=== PATIENT | female | born 1940 | race Caucasian/White ===

== ENCOUNTER 2020-03-13 21:40 | Emergency (ER) | payer MEDICARE, BC ==
--- NOTE | 2020-03-13 21:42 | CT ---
PROCEDURE INFORMATION: Exam: CT Head Without Contrast Exam date and time: 03/13/2020 9:33 PM Age: 79 years old Clinical indication: Weakness, facial; Additional info: Seizure, facial droop TECHNIQUE: Imaging protocol: Computed tomography of the head without contrast. Coronal and sagittal reformatted images are submitted. Radiation optimization: All CT scans at this facility use at least one of these dose optimization techniques: automated exposure control; mA and/or kV adjustment per patient size (includes targeted exams where dose is matched to clinical indication); or iterative reconstruction. Other technique: STROKE PROTOCOL was implemented. COMPARISON: No prior study is available for comparison at the time of this interpretation. FINDINGS: There are patchy mild hypodensities within the periventricular and frontal subcortical white matter bilaterally, consistent with chronic senescent small-vessel ischemic changes. No other abnormal foci of altered attenuation are seen within the remaining cerebral or cerebellar parenchyma. No intracranial mass lesion or evidence for acute territorial ischemia. There is symmetric enlargement of the ventricles and sulci bilaterally, consistent with cerebral atrophy, mild for age. No midline shift or hydrocephalus. No abnormal extraaxial fluid or air collection; no intracranial hemorrhage. Atherosclerotic intracranial vascular calcifications noted. There is evidence for prior bilateral ocular lens replacement surgery, but the orbits are otherwise unremarkable. The paranasal sinuses, mastoid air cells, skull, and scalp are unremarkable. IMPRESSION: --No acute intracranial pathology. --[place] Stroke Program Early CT Score (ASPECTS) = 10. --Chronic findings are described above.
[2020-03-13 22:11] LABS: ANION GAP 12.2 mEq/L (7-13); CHLORIDE,CL 99 mmol/L (98-107); SODIUM,NA 138 mmol/L (136-145)
[2020-03-13] MEDS ORDERED: Potassium Chloride 20 MEQ in Premix Bag 1 BAG IV ONE (22:54)
[2020-03-13] MEDS ORDERED: Sodium Chloride 0.9% 1,000 ML IV ONE (22:54)
--- NOTE | 2020-03-15 23:39 | EDM.PDOC ---
ED HPI GENERAL MEDICAL PROBLEM - General Chief Complaint: Neuro Symptoms/Deficits Stated Complaint: STROKE CODE - AMBULANCE Time Seen by Provider: 03/13/20 21:40 Source of Information: Reports: Patient, EMS, Family History Limitations: Reports: No Limitations - History of Present Illness INITIAL COMMENTS - FREE TEXT/NARRATIVE: ED via [facility] with report of seizure while at Family [facility]. Daughter reports grand mal type, first let out scream then generalized shaking for approximately 1 minute, incontinent urine. Lowered to ground, did not fall or hit head Postictal 15minutes at least. Hx Parkinson's disease. Resident [facility]. Had been with daughter in [place] for about one week prior to today's event. baseline some dementia with Parkinsons. Patient alert on arrival talking. EMS reported initial noting of right sided facial droop. No prior stroke events. No recent infection, no known exposure to COVID. GCS 14 - Related Data Allergies Allergy/AdvReac Type Severity Reaction Status Date / Time codeine Allergy Headache Verified 03/13/20 22:10 Home Meds: Home Meds Carbidopa/Levodopa [Carbidopa-Levodopa 25-250] 1 each PO ASDIRECTED 03/13/20 [History] Cholecalciferol (Vitamin D3) [Vitamin D] 5,000 unit PO DAILY 03/13/20 [History] Entacapone [Comtan] 200 mg PO ASDIRECTED 03/13/20 [History] Famotidine 20 mg PO DAILY 03/13/20 [History] Pantoprazole Sodium [Protonix] 40 mg PO DAILY 03/13/20 [History] Sertraline HCl 100 mg PO BID 03/13/20 [History] Vit A/Vit C/Vit E/Zinc/Copper [Preservision Areds Softgel] 1 each PO BID 03/13/20 [History] Zinc 50 mg PO DAILY 03/13/20 [History] Past Medical History Neurological History: Reports: Parkinson's Oncologic (Cancer) History: Reports: Leukemia - Past Surgical History GI Surgical History: Reports: Appendectomy, Bariatric Procedure, Cholecystectomy Female Surgical History: Reports: Hysterectomy Musculoskeletal Surgical History: Reports: Other (See Below) Other Musculoskeletal Surgeries/Procedures:: ankle surgery Social & Family History - Tobacco Use Smoking Status *Q: Never Smoker Second Hand Smoke Exposure: No - Recreational Drug Use Recreational Drug Use: No ED ROS GENERAL - Review of Systems Review Of Systems: See Below Constitutional: Reports: Weakness (general parkinnson's) HEENT: Reports: Glasses Respiratory: Reports: No Symptoms Cardiovascular: Reports: No Symptoms Endocrine: Reports: No Symptoms GI/Abdominal: Reports: No Symptoms : Reports: Incontinence Musculoskeletal: Reports: No Symptoms Skin: Reports: No Symptoms Neurological: Reports: Pre-Existing Deficit, Seizure. Denies: Dizziness, Headache, Numbness, Trouble Speaking Psychiatric: Reports: Other (early mild dementia) ED EXAM, NEURO - Physical Exam Exam: See Below Exam Limited By: No Limitations General Appearance: Alert, No Apparent Distress Eye Exam: Bilateral Eye: EOMI (3 brisk), PERRL Ears: Normal External Exam, Hearing Loss Nose: Normal Inspection Throat/Mouth: Normal Inspection Head Exam: Atraumatic, Normocephalic Neck: Normal Inspection Respiratory/Chest: No Respiratory Distress, Lungs Clear, Normal Breath Sounds Cardiovascular: Normal Peripheral Pulses, Regular Rate, Rhythm GI/Abdominal: Normal Bowel Sounds, Soft Neurological: Alert, Normal Reflexes, Other (generalized weakness equal strength bilateral). No: Oriented x 3 (oriented person, baseline deficit per daughter, Initial report lives in [place], corrects self, and that now is in [place].), Tremor Extremities: Limited Range of Motion (Stiff) Psychiatric: Flat Affect Skin Exam: Warm, Dry, Intact, Normal Color. No: Increased Warmth, Rash, Wound/Incision Course - Vital Signs Last Recorded V/S: Last Vital Signs Temp 98.1 F 03/13/20 21:41 Pulse 78 03/13/20 21:41 Resp 18 03/13/20 21:41 BP 168/77 H 03/13/20 21:41 Pulse Ox 94 L 03/13/20 21:41 - Orders/Labs/Meds Labs: Laboratory Tests 03/13/20 03/13/20 03/13/20 Range/Units 21:40 21:40 21:40 WBC 2.6 L (5.0-10.0) 10^3/uL RBC 4.48 (4.2-5.4) 10^6/uL Hgb 12.7 (12.0-16.0) g/dL Hct 39.2 (37.0-47.0) % MCV 87.5 (80-100) fL MCH 28.3 (27.0-34.0) pg MCHC 32.4 L (33.0-35.0) g/dL Plt Count 281 (150-450) 10^3/uL Neut % (Auto) 53.9 (42.2-75.2) % Lymph % (Auto) 22.3 (20.5-50.1) % Traverse % (Auto) 19.2 H (2-8) % Eos % (Auto) 4.2 H (1.0-3.0) % Baso % (Auto) 0.4 (0.0-1.0) % PT 9.6 (9.0-12.0) SEC INR 1.0 (0.9-1.2) Sodium 138 (136-145) mmol/L Potassium 3.2 L (3.5-5.1) mmol/L Chloride 99 (98-107) mmol/L Carbon Dioxide 30 (21-32) mmol/L Anion Gap 12.2 (7-13) mEq/L BUN 14 (7-18) mg/dL Creatinine 0.69 (0.55-1.02) mg/dL Est Cr Clr Drug Dosing TNP Estimated GFR (MDRD) > 60 BUN/Creatinine Ratio 20.3 (No establ ref range) Glucose 155 H (74-99) mg/dL Lactic Acid (0.4-2.0) mmol/L Calcium 8.5 (8.5-10.1) mg/dL Total Bilirubin 0.7 (0.2-1.0) mg/dL AST 16 (15-37) U/L ALT 9 L (14-59) U/L Alkaline Phosphatase 144 H (46-116) U/L Troponin I < 0.017 (0.000-0.056) ng/mL C-Reactive Protein 1.8 H (0.0-0.9) mg/dL Total Protein 6.9 (6.4-8.2) g/dL Albumin 3.6 (3.4-5.0) g/dL Globulin 3.3 Albumin/Globulin Ratio 1.1 Urine Color (YELLOW) Urine Appearance (CLEAR) Urine pH (5.0-9.0) Ur Specific Many (1.005-1.030) Urine Protein (NEGATIVE) Urine Glucose (UA) (NEGATIVE) Urine Ketones (NEGATIVE) Urine Occult Blood (NEGATIVE) Urine Nitrite (NEGATIVE) Urine Bilirubin (NEGATIVE) Urine Urobilinogen (0.2-1.0) mg/dL Ur Leukocyte Esterase (NEGATIVE) Urine RBC /HPF Urine WBC (0-5/HPF) /HPF Ur Epithelial Cells (NOT SEEN) /HPF Urine Bacteria (0-FEW/HPF) /HPF COVID-19 (APRYL) (NEGATIVE) 03/13/20 03/13/20 03/13/20 Range/Units 21:40 22:16 22:50 WBC (5.0-10.0) 10^3/uL RBC (4.2-5.4) 10^6/uL Hgb (12.0-16.0) g/dL Hct (37.0-47.0) % MCV (80-100) fL MCH (27.0-34.0) pg MCHC (33.0-35.0) g/dL Plt Count (150-450) 10^3/uL Neut % (Auto) (42.2-75.2) % Lymph % (Auto) (20.5-50.1) % Traverse % (Auto) (2-8) % Eos % (Auto) (1.0-3.0) % Baso % (Auto) (0.0-1.0) % PT (9.0-12.0) SEC INR (0.9-1.2) Sodium (136-145) mmol/L Potassium (3.5-5.1) mmol/L Chloride (98-107) mmol/L Carbon Dioxide (21-32) mmol/L Anion Gap (7-13) mEq/L BUN (7-18) mg/dL Creatinine (0.55-1.02) mg/dL Est Cr Clr Drug Dosing Estimated GFR (MDRD) BUN/Creatinine Ratio (No establ ref range) Glucose (74-99) mg/dL Lactic Acid 3.2 H* (0.4-2.0) mmol/L Calcium (8.5-10.1) mg/dL Total Bilirubin (0.2-1.0) mg/dL AST (15-37) U/L ALT (14-59) U/L Alkaline Phosphatase (46-116) U/L Troponin I (0.000-0.056) ng/mL C-Reactive Protein (0.0-0.9) mg/dL Total Protein (6.4-8.2) g/dL Albumin (3.4-5.0) g/dL Globulin Albumin/Globulin Ratio Urine Color Dark yellow (YELLOW) Urine Appearance Clear (CLEAR) Urine pH 7.0 (5.0-9.0) Ur Specific Many 1.020 (1.005-1.030) Urine Protein Negative (NEGATIVE) Urine Glucose (UA) Negative (NEGATIVE) Urine Ketones Negative (NEGATIVE) Urine Occult Blood Trace-intact H (NEGATIVE) Urine Nitrite Negative (NEGATIVE) Urine Bilirubin Negative (NEGATIVE) Urine Urobilinogen 0.2 (0.2-1.0) mg/dL Ur Leukocyte Esterase Negative (NEGATIVE) Urine RBC 0-5 /HPF Urine WBC 0-5 (0-5/HPF) /HPF Ur Epithelial Cells Rare (NOT SEEN) /HPF Urine Bacteria Rare (0-FEW/HPF) /HPF COVID-19 (APRYL) Negative (NEGATIVE) Meds: Medications Discontinued Medications Generic Name Dose Route Start Last Admin Trade Name Freq PRN Reason Stop Dose Admin Sodium Chloride 1,000 mls @ 500 mls/hr 03/13/20 22:54 03/13/20 23:11 Normal Saline IV 03/14/20 00:53 500 mls/hr .BOLUS ONE Administration Potassium Chloride 20 meq/ 100 mls @ 50 mls/hr 03/13/20 22:54 03/13/20 23:12 Premix IV 03/14/20 00:53 50 mls/hr ONETIME ONE Administration - Re-Assessments/Exams Free Text/Narrative Re-Assessment/Exam: No bed availability at [facility]. [facility] accepting patient. Requests COVID testing prior to Tx to determine proper placement due to Assisted living Facility risk at [place]. Tx via [facility]. Stable condition. No further seizure activity. Remains alert talking with daughter. Departure - Departure Time of Disposition: 00:10 Disposition: DC/Tfer to Acute Hospital 02 Condition: Undetermined Clinical Impression: Parkinson disease, Seizure, Hypokalemia - Discharge Information *PRESCRIPTION DRUG MONITORING PROGRAM REVIEWED*: No *COPY OF PRESCRIPTION DRUG MONITORING REPORT IN PATIENT NATALIA: No Forms: ED Department Discharge Sepsis Event Note (ED) - Evaluation Sepsis Screening Result: No Definite Risk
== END 2020-03-14 00:09 ==
LOC: DL.ED 21:40
DX: R56.9 Unspecified convulsions (principal); E87.6 Hypokalemia; G20 Parkinson's disease; Z20.828 Contact with and (suspected) exposure to other viral communicable diseases; Z88.5 Allergy status to narcotic agent
CPT/HCPCS: 36415; 70450; 80053; 81001; 83605; 84484; 85025; 85610; 86140; 87040; 93005; 96365; 99284; 99285; J3480; J7030; U0002